=== PATIENT | female | born 1980 | race African-American/Black ===

== ENCOUNTER 2017-07-12 10:53 | Emergency (ER) | payer MEDICAID, OTHER ==
[~2017-07-12] VITALS: Ht 180.3 cm; Wt 110.0 kg
[~2017-07-12 10:53] MED LIST: ASPI1TAB93 PO; FERR325C; PREN1TAB30; TRIA0.022 TOPICAL
[2017-07-12 10:57] VITALS: BP 127/66; PULSE 90; RESP 14; TEMP 99.3; O2SAT 99
[2017-07-12] MEDS ORDERED: OSEL60SU PO (11:09)
--- NOTE | 2017-07-12 11:14 | PD ---
HPI Chief Complaint: Cold / Flu Symptoms Time Seen by Provider: 11:04 Travel History International Travel<30 days: No Contact w/Intl Traveler<30days: No Traveled to known affect area: No History of Present Illness HPI Patient comes emergency department complaining of possible flu. Patient states her son tested positive for 5 days ago and she began having symptoms yesterday. Patient reports runny nose, tickle in her throat, and dry nonproductive cough. Denies any fevers, body aches, nausea, vomiting, diarrhea, chest pain, or shortness of breath. Denies anything making symptoms better or worse. Denies any pain or radiation of pain. PFSH Past Medical History Diminished Hearing: No ?: Not : 4 Para: 2 Miscarriage: 1 Past Surgical History Section: No Social History Alcohol Use: No Tobacco Use: No Substance Use: No Allergies-Medications (Allergen,Severity, Reaction): Coded Allergies: penicillin G (Unverified Allergy, Severe, HIVES, 07/12/17) amoxicillin (Unverified Allergy, Mild, hives, 07/12/17) Reported Meds & Prescriptions Reported Meds & Active Scripts Active Tamiflu Liq (Oseltamivir Phosphate) 6 Mg/Ml Jacque 75 Mg PO BID 5 Days Triamcinolone Topical 0.025 % Oint 1 Applic TOPICAL BID Excedrin Extra Strength (Dqzrsxy-Wwgetihnzgjbw-Qdjrlvvz) 1 Tab Tab 2 Tab PO ONCE PRN Reported Iron (Ferrous Sulfate) 325 Mg Capsule.er Vitamin 27-0.8 mg ( Vit W/ Ferrous Fumara) 1 Tab Tab Review of Systems Except as stated in HPI: all other systems reviewed are Neg Physical Exam Narrative GENERAL: Well-developed, overly nourished, in no acute distress, and non-ill appearing. SKIN: Focused skin assessment warm and dry. HEAD: Atraumatic. Normocephalic. EYES: Pupils equal and round. EOMI. No scleral icterus. No injection or drainage. ENT: No nasal bleeding or discharge. Mucous membranes pink and moist. Posterior pharynx nonerythematous without exudate. Uvula midline. No tenderness to facial sinuses to palpation. NECK: Trachea midline. No cervical lymphadenopathy. Supple. No nuclear rigidity. CARDIOVASCULAR: Regular rate and rhythm. No murmur appreciated. RESPIRATORY: No accessory muscle use. No respiratory distress. Clear to auscultation. Breath sounds equal bilaterally. MUSCULOSKELETAL: No obvious deformities. No clubbing. No cyanosis. No edema. Full range of motion. NEUROLOGICAL: Awake and alert. No obvious cranial nerve deficits. Motor grossly within normal limits. Normal speech. PSYCHIATRIC: Appropriate mood and affect; insight and judgment normal. Data Data Last Documented VS Vital Signs Date Time Temp Pulse Resp B/P (MAP) Pulse Ox O2 Delivery O2 Flow Rate FiO2 07/12/17 11:22 07/12/17 10:57 99.3 90 14 99 Orders Orders Ed Discharge Order (07/12/17 11:14) MDM Medical Decision Making Medical Screen Exam Complete: Yes Emergency Medical Condition: Yes Differential Diagnosis Influenza, URI, viral illness, sinusitis, allergies Narrative Course Patient looks great. Patients symptom complex is consistent with Influenza, or flu-like illness. The patient is tolerating fluids and is well hydrated. There is no evidence to suggest secondary infection (pneumonia, sepsis/bacteremia, etc.) at this time. I discussed with the patient, diagnosis, and plan of care and to follow up with the patients primary physician. I discussed with the patient regarding testing, even if rapid influenza negative, I would suspect false negative. I discussed with the patient initiating Tamiflu and the patient agreed with plan. The patient was instructed to return if the worsens in anyway , especially if not tolerating fluids, increased pain or swelling, difficulty swallowing or breathing, or as needed. The patient agreed with plan. Patient in no obvious distress upon re-evaluation. Patient was asked if they wanted to speak to my attending, which the patient did not wish to do at this time. Any questions/concerns in reference to patient diagnosis/condition discussed and clarified prior to patient's discharge. Reinforced sheer importance of close follow up with patient's primary physician or primary care clinic. Instructed patient to return to ED immediately, if symptoms return/ worsen. Patient showed understanding of above instructions. Further instructions and recommendations were detailed in discharge paperwork. Patient ambulated without difficulty out of ED at discharge. Diagnosis Primary Impression: Flu-like symptoms Additional Impression: Exposure to the flu Referrals: [facility] Patient Instructions: General Instructions, Influenza (ED) Additional Instructions: Follow-up with your primary care physician this week for reevaluation. Take all medication as prescribed. Use [id number] Tylenol and/or ibuprofen as needed for pain or fevers. Follow instructions on the packaging. Drink plenty of non-caffeinated and nonalcoholic fluids. Return to the emergency department if symptoms get worse. Med/Other Pt SpecificInfo: Prescription(s) given Scripts Oseltamivir Liq (Tamiflu Liq) 6 Mg/Ml Jacque 75 MG PO BID for Mgmt Viral Infection for 5 Days, ML 0 Refills Prov: Tena Parikh MD 07/12/17 Disposition: 01 DISCHARGE HOME Condition: Stable Greg Conner Jul 12, 2017 11:14
== END 2017-07-12 11:22 | disposition home or self-care (01) ==
LOC: NEPK 10:53
DX: R05 Cough (principal); Z20.828 Contact with and (suspected) exposure to other viral communicable diseases
CPT/HCPCS: 99283